=== PATIENT | female | born 1950 | race Caucasian/White ===

== ENCOUNTER 2024-08-29 11:39 | Outpatient (RCR) | payer MEDICARE, MEDICAID, SELFPAY ==
--- NOTE | 2024-08-29 13:33 | CTCFLWUP_ITS ---
Michael Avilez [facility] [address] [place], [place] [address] FOLLOW-UP NOTE Date: 08/29/2024 MR#: [id number] Name: JAH CASTLE : 1950 Dx: C34.12 Malignant neoplasm of upper lobe, left bronchus or lung Identification. Patient with diagnosis of SCCA R lung Just had completed PET scan. Unfortunately in addition to the 42 mm hypermetabolic pulmonary mass ri ght upper lobe there is a 12 mm right hilar hypermetabolic lymphadenopathy and 6 mm high right para-a ortic hypermetabolic lymph node. Patient stage appears to be minimum stage IIa T2aN1 , not a candidate for radiation surgery. Not sure if the hypermetabolic lymph node right para-aortic is at 6 mm is truly involved or not, but this would make it stage IV with mets. Patient was understandably upset about the PET findings but is willing to receive any therapy that mi t be helpful to her although is understandably concerned about chemotherapy. Told her about the PD-L1 that has been ordered and foundation 1 that I ordered today to help the [facility] oncologist various options that may be possible. Patient who lives in [place] was interested in seeing a local medical oncologist. I will introduce he r to Dr. Axel Mayen. The PD-L1 results and foundation 1 results hopefully will be available to Dr.Ku harris along with the records when patient sees him. Cc: Axel Mayen MD Electronically signed by: Luke Galeano M.D. 08/29/2024 1:30 PM
== END 2024-09-14 23:59 | disposition home or self-care (01) ==
LOC: SCTC 11:39
PROVIDERS: PCP Physician Assistant; Referring Provider Physician Assistant; Visit Provider Radiology Therapeutic Radiology
DX: C34.11 Malignant neoplasm of upper lobe, right bronchus or lung (principal)
CPT/HCPCS: 99213; G0463

== ENCOUNTER → 2024-09-23 | Outpatient (CLI) | payer MEDICARE, MEDICAID, SELFPAY ==
[2024-09-20 11:20] VITALS: BMI 30.4
[2024-09-23 13:41] LABS: Basophils # (Auto) 0.1 Thou/mm3 (0.0-0.2); Basophils % (Auto) 1 % (0-2.5); Eosinophils # (Auto) 0.2 Thou/mm3 (0.0-0.5); Eosinophils % (Auto) 3 % (0-10); Hematocrit 41.8 % (36.0-46.0); Hemoglobin 13.7 g/dL (12.0-16.0); Immature Granulocytes % (Auto) 0 % (0-0); Immature Granulocytes Auto 0.01 Thou/mm3 (0.00-0.00); Lymphocytes # (Auto) 2.2 Thou/mm3 (1.0-4.8); Lymphocytes % (Auto) 29 % (10-50); Mean Corpuscular HGB Conc 32.8 g/dl (31.0-37.0); Mean Corpuscular Hemoglobin 31.8 pg (25.0-35.0); Mean Corpuscular Volume 97 fL (80-100); Monocytes # (Auto) 0.4 Thou/mm3 (0.0-0.8); Monocytes % (Auto) 5 % (0-12); Neutrophils # (Auto) 4.7 Thou/mm3 (1.8-7.7); Neutrophils % (Auto) 62 % (37-80); Nucleated Red Blood Cell % 0 /100 WBC (0); Platelet Count 231 Thou/mm3 (140-440); RDW Standard Deviation 47.8 fL (36.4-46.3); Red Blood Count 4.31 Miln/mm3 (4.00-5.20); White Blood Count 7.6 Thou/mm3 (3.6-11.0)
[2024-09-23 13:55] LABS: Partial Thromboplastin Time 27.8 Seconds (22.0-36.0); Prothrombin Time 11.1 Seconds (9.0-12.2)
[2024-09-23 13:58] LABS: Blood Urea Nitrogen 17 mg/dL (9-23); Estimated Creatinine Clearance 50.6 mL/min (>60); eGFR 59 See Note
--- NOTE | 2024-09-24 08:30 | PC.NURSE ---
contact patient for confirmation of arriving to schedule appointment. per patient she will like to cancel procedure. call transferred to scheduling for cancellation.
== END | disposition home or self-care (01) ==
LOC: SLAB 09-26 08:41
PROVIDERS: Radiology Diagnostic Radiology; PCP Physician Assistant; Referring Provider Internal Medicine Hematology & Oncology; Visit Provider Internal Medicine Hematology & Oncology
DX: C34.11 Malignant neoplasm of upper lobe, right bronchus or lung (principal)
CPT/HCPCS: 36415; 82565; 84520; 85025; 85610; 85730

== ENCOUNTER 2024-12-30 13:03 | Emergency (ER) | payer MEDICARE, MEDICAID, SELFPAY ==
[2024-12-30 13:04] VITALS: BMI 27.4
[2024-12-30 13:30] VITALS: BP 123/76; PULSE 126; RESP 20; TEMP 36.8; O2SAT 96
--- NOTE | 2024-12-30 13:39 | EKG_ITS ---
[facility] Test Date: 2024-12-30 Pat Name: JAH CASTLE Department: Room: - Gender: Female [employer]: : 1950 Requested By: Randy Key Order Number: [id number] Reading MD: Randy Key Measurements Intervals Maynard Rate: 119 P: 52 SD: 155 QRS: -29 QRSD: 74 T: 45 QT: 298 QTc: 420 Interpretive Statements SINUS TACHYCARDIA LOW QRS VOLTAGE IN PRECORDIAL LEADS [QRS DEFLECTION < 1.0 mV IN CHEST LEADS] ANTERIOR MYOCARDIAL INFARCTION , PROBABLY OLD [40+ ms Q WAVE AND/OR ST/T ABNORMALITY IN V3/V4] INFERIOR MYOCARDIAL INFARCTION , PROBABLY OLD [40+ ms Q WAVE AND/OR ST/T ABNORMALITY IN II/aVF] Compared to ECG 07/24/2024 12:32:39 Sinus rhythm no longer present Myocardial infarct finding still present /store/S0/[id number]/ecg/[id number].pdf
--- NOTE | 2024-12-30 13:39 | PD.EDRME ---
Rapid Medical Screening Exam RME Arrival date/time: 12/30/24 13:03 74-year-old female with a history of stage III lung cancer presents to the emergency room with a chief complaint of weakness, fatigue, bilateral lower extremity pain and cramping x 3 days I have greeted and performed a focused initial assessment of this patient. A comprehensive ED assessment and evaluation of the patient, analysis of all test results, and completion of the medical decision making process will be conducted by additional ED providers. Chief Complaint: Abdominal Pain Time Seen by Provider: 12/30/24 13:09 Vital signs: Vital Signs Temperature 98.3 F 12/30/24 13:30 Pulse Rate 126 H 12/30/24 13:30 Respiratory Rate 20 12/30/24 13:30 Blood Pressure 123/76 12/30/24 13:30 Pulse Oximetry (%) 96 12/30/24 13:30 Oxygen Delivery Method Room Air 12/30/24 13:30 Vital signs reviewed by provider: Yes
[2024-12-30 14:18] LABS: Basophils % (Auto) 0 % (0-2.5); Eosinophils % (Auto) 0 % (0-10); Hematocrit 25.7 % (36.0-46.0); Immature Granulocytes % (Auto) 0 % (0-0); Immature Granulocytes Auto 0.01 Thou/mm3 (0.00-0.00); Lymphocytes # (Auto) 1.1 Thou/mm3 (1.0-4.8); Lymphocytes % (Auto) 27 % (10-50); Mean Corpuscular HGB Conc 33.5 g/dl (31.0-37.0); Mean Corpuscular Hemoglobin 32.7 pg (25.0-35.0); Mean Corpuscular Volume 98 fL (80-100); Monocytes # (Auto) 0.4 Thou/mm3 (0.0-0.8); Monocytes % (Auto) 9 % (0-12); Neutrophils # (Auto) 2.5 Thou/mm3 (1.8-7.7); Neutrophils % (Auto) 63 % (37-80); Nucleated Red Blood Cell % 0 /100 WBC (0); Platelet Count 114 Thou/mm3 (140-440); RDW Standard Deviation 68.7 fL (36.4-46.3); Red Blood Count 2.63 Miln/mm3 (4.00-5.20)
[2024-12-30 14:30] LABS: Hemoglobin 8.6 g/dL (12.0-16.0)
[2024-12-30 14:33] LABS: Partial Thromboplastin Time 32.5 Seconds (22.0-36.0); Prothrombin Time 11.3 Seconds (9.0-12.2)
[2024-12-30 14:37] LABS: B-Type Natriuretic Peptide 39 pg/mL (0-100)
[2024-12-30 14:44] LABS: Alanine Aminotransferase 55 U/L (10-49); Albumin, Serum 4.1 gm/dL (3.4-4.8); Albumin/Globulin Ratio 1.1 (1.2-2.2); Alkaline Phosphatase 91 U/L (46-116); Anion Gap 14 (7-16); Aspartate Amino Transferase 53 U/L (0-34); BUN/Creatinine Ratio 28 Ratio (12-20); Bilirubin,Total 0.5 mg/dL (0.3-1.2); Blood Urea Nitrogen 25 mg/dL (9-23); Calcium 9.4 mg/dL (8.3-10.6); Calcium (Corrected) 9.4 mg/dL (8.5-10.1); Chloride 110 mMol/L (98-107); Creatinine (Component) 0.9 mg/dL (0.6-1.3); Estimated Creatinine Clearance 57.5 mL/min (>60); Globulin 3.9 gm/dL (2.3-3.5); Glucose 103 mg/dL (74-106); Lipase 139 U/L (12-53); Magnesium 1.9 mg/dL (1.6-2.6); Osmolality,Calculated 278 (275-295); Potassium 4.2 mMol/L (3.4-5.1); Sodium 137 mMol/L (136-145); Troponin I < 0.020 ng/mL (0.0-0.045); eGFR > 60 See Note
[2024-12-30 15:00] LABS: Carbon Dioxide 13.3 mMol/L (20.0-31.0)
[2024-12-30 16:34] VITALS: BP 131/73; PULSE 117; RESP 24; TEMP 36.5; O2SAT 95
--- NOTE | 2024-12-30 16:40 | PD.EDABDPN ---
ED Abdominal Pain RME/HPI General Chief Complaint: Abdominal Pain Stated complaint: ABD/LEG PAIN FOR 3 DAYS Time seen by provider: 12/30/24 13:09 Arrival date/time: 12/30/24 13:03 74 year old female with past medical history of lung cancer Hypotension , HTN, present to emergency room with c/o of abd pain/leg pain for 3 days. Pt takes norco as need for pain and ativan as need for anxiety LOCATION: leg, abd SEVERITY: Symptoms are described as being severe with limitations on activities of daily living QUALITY: Symptoms are described as being dull or achy CONTEXT: none DURATION/TIMING: The symptoms started approximately 3 days ASSOCIATED SYMPTOMS:Weakness, lower leg pain, cramping, fatigue dry heaving MODIFYING FACTORS: The patient is unable to identify any alleviating or aggravating symptoms. PERTINENT ROS: no fevers, no headache, no neck or chest pain, , no focal neurological deficits no chest pain, shortness of breath, no dizziness/loc/syncope no recent travel/surgery REVIEW OF SYSTEMS: See History of Present Illness - with the exception of those mentioned in the history of present illness, all other systems reviewed and reported as negative GENERAL: In general the patient is awake, interactive, in an emergency department gurney. HEAD/EYES/EARS/NOSE/THROAT: normo-cephalic, atraumatic, mucus membranes are moist, anicteric, palpebral conjunctiva is pink, trachea is midline. CARDIOVASCULAR: regular rate and regular rhythm, no murmurs, heart sounds are not distant, strong pulses in all four extremities that are equal and symmetric bilateral upper and lower extremities, normal capillary refill. CHEST/PULMONARY: normal chest rise and fall, good air movement, clear to auscultation bilaterally, normal inspiratory to expiratory ratios without evidence of respiratory distress. NECK: No midline/Paraspinal tenderness, no step off ROM/Strenght intact No Kernig and bruzinski sign. No trauma ABDOMEN: soft, not tender, no masses appreciated BACK: normal range of motion without pain. NEUROLOGICAL: cranio-facial features are symmetric, moves all four extremities equally without obvious limitations or weakness. EXTREMITY: + bilateral calf tenderness, no pitting edema no tenderness to palpation over the long bones or large joints of the bilateral upper extremities, no joint swelling, no joint erythema, no signs of trauma, no unilateral leg swelling and no peripheral edema. SKIN: warm, dry, well-perfused, no jaundice, no rash, no telangiectasias or petechia. PSYCH: calm, cooperative, no evidence of psychosis or agitation RME / HPI RME / HPI narrative: 12/30/24 13:03 74-year-old female with a history of stage III lung cancer presents to the emergency room with a chief complaint of weakness, fatigue, bilateral lower extremity pain and cramping x 3 days I have greeted and performed a focused initial assessment of this patient. A comprehensive ED assessment and evaluation of the patient, analysis of all test results, and completion of the medical decision making process will be conducted by additional ED providers. Related Data Home Medications ?Medication ?Instructions ?Recorded ?Confirmed gabapentin 300 mg capsule 600 mg PO TID 04/17/23 07/24/24 hydrocodone 10 mg-acetaminophen 0.5 tab PO QID 04/17/23 07/24/24 325 mg tablet lorazepam 1 mg tablet (Ativan) 1 mg PO BID 07/24/24 07/24/24 losartan 25 mg tablet 25 mg PO QDAY 07/24/24 07/24/24 Allergies Allergy/AdvReac Type Severity Reaction Status Date / Time cephalexin Allergy Severe SWELLING Verified 12/30/24 13:06 pregabalin (From Lyrica) Allergy Severe Hives Verified 12/30/24 13:06 tetracycline Allergy Severe HIVES Verified 12/30/24 13:06 Course Quality Measures none Orders Category Date Time Status EKG (ED ONLY) *Do not use* NOW Care 12/30/24 13:[address] chest abdomen pelvis wo Stat Exams 12/30/24 16:54 Ordered EKG (ED Only) Stat Exams 12/30/24 13:39 Draft US venous doppler LE BI Stat Exams 12/30/24 16:54 Completed B-Type Natriuretic Peptide Stat Lab 12/30/24 13:58 Completed CBC Stat Lab 12/30/24 13:58 Completed CMP [Comprehensive Metabolic Panel] Stat Lab 12/30/24 13:58 Completed Lipase Stat Lab 12/30/24 13:58 Completed Magnesium Stat Lab 12/30/24 13:58 Completed Partial Thromboplastin Time Stat Lab 12/30/24 13:58 Completed Prothrombin Time with INR Stat Lab 12/30/24 13:58 Completed Troponin I Stat Lab 12/30/24 13:58 Completed UA [Urinalysis] Stat Lab 12/30/24 13:39 Ordered Urine Culture Stat Lab 12/30/24 13:39 Ordered ALPRazoLAM [Xanax] Med 12/30/24 16:53 Discontinued 1 mg PO X1 ONE ALPRazoLAM [Xanax] Med 12/30/24 19:08 Discontinued 1 mg PO X1 ONE Reevaluation(s) Reevaluation #1: pt would like to leave ama. pt report did not want to wait for CT scan. daughter will take patient home and follow up with PCP or return if symptoms worsen Despite our efforts, has decided to leave against medical advice (AMA) he/she has normal mental status and full decisional capacity. The patient understands his/her condition(stable ) and the risk of leaving AMA, including BUT NOT LIMITED TO permanent disability, , etc, and has had an opportunity to ask questions about his/her medical condition. The patient has been informed that he/she may return for care at anytime and has been referred to his/her PMD/PCP for follow up CARLIE. Vital Signs Vital signs: Vital Signs Temperature 98.3 F 12/30/24 13:30 Pulse Rate 126 H 12/30/24 13:30 Respiratory Rate 20 12/30/24 13:30 Blood Pressure 123/76 12/30/24 13:30 Pulse Oximetry (%) 96 12/30/24 13:30 Oxygen Delivery Method Room Air 12/30/24 13:30 Procedures -ED EKG Interpretation #1: Date of EK12/30/24 Rate: 119 Interpretation: Reviewed by me EKG Impression: Sinus tachycardia Abdominal Pain MDM Patient data External records reviewed:: [facility] previous records Clinical information provided by:: patient and family Social determinants that could affect healthcare access:: none Patient has the following chronic illnesses:: as stated in chart How is presenting disease/condition affected by chronic disease/condition?: exacerbated by Evaluation data The following diagnostics were reviewed and interpreted by me:: lab results, radiology exam(s) and EKG tracing(s) Lab and/or radiology exams considered but not ordered:: CT, left AMA Interpretation Summary: US: no dvt cbc/cmp wnl exception for CO Medications / Prescriptions Medications or Prescriptions considered but not ordered:: n/a Medication administrations:: Medication Administration History Discontinued Medications Alprazolam (Alprazolam 0.25 Mg Tablet) 1 mg PO X1 ONE Stop: 12/30/24 16:54 Last Admin: 12/30/24 16:57 Dose: 1 mg Documented By: BRIDGET Alprazolam (Alprazolam 0.25 Mg Tablet) 1 mg PO X1 ONE Stop: 12/30/24 19:09 as stated above Consultations Consultation(s) initiated? (list below): No Diagnosis Differential diagnosis abdominal pain: abdominal pain, calculus of kidney, constipation, diverticulitis, gastroenteritis, pancreatitis, small bowel obstruction and other (DVT< anemia ) Most likely diagnosis given after review of the tests above:: abd pain, leg pain Admission Indicated Admission indicated?: not indicated Admission Request Was there a request for admission?: No Disposition Plan Disposition Plan: Discharge Discharge Attestation Discharge Attestation: The patient and all family members were given an opportunity to ask questions and understood the discharge instructions. Discharge instructions specifically effects, indications for sooner follow up or return to the emergency department, and the expected course of current diagnosis. Patient condition: Stable Discharge Plan Plan Patient Disposition: Left Against Medical Advice Prescriptions/Referrals Prescriptions/Med Rec: No Action losartan 25 mg Tablet 25 mg PO QDAY lorazepam [Ativan] 1 mg Tablet 1 mg PO BID hydrocodone-acetaminophen 10-325 mg tablet 0.5 tab PO QID gabapentin 300 mg capsule 600 mg PO TID Patient Comments: TAKE 2 CAPSULES BY MOUTH 3 TIMES A DAY Referrals: Danielle Ayers PA-C [Primary Care Provider] - In 1 week Problem List Clinical Impression: Abdominal pain, Anemia, Acute leg pain Patient/Caregiver Discharge Instructions Education Materials: ED Anemia Type Not Specified, ED Myalgias Print Language: Hungarian
--- NOTE | 2024-12-30 16:54 | XR_ITS ---
Examination: Venous duplex lower extremity sonogram, bilateral. Date and time of exam: December 30, 2024 1742 hrs. Indications: Bilateral leg pain beginning 3 days ago, undergoing chemotherapy for lung cancer Technique: Multiple sonographic images of the deep venous system have been obtained. B-mode/2-D grayscale imaging of vascular structures and Doppler spectral analysis (waveforms) and color performed Both legs are examined. Findings: Deep venous systems do not demonstrate abnormal echogenicity. All visualized deep veins exhibit compressibility. All visualized deep veins exhibit augmentation. Impression: Negative for deep vein thrombosis
[2024-12-30] MEDS: ALPRazoLAM 0.25 MG TABLET 1 MG PO ×2 (16:57→19:23)
[2024-12-30 18:02] VITALS: BP 135/70; PULSE 97; RESP 19; TEMP 36.6; O2SAT 97
--- NOTE | 2024-12-30 19:20 | PC.NURSE ---
Received report from Fredis CARREON. Pt doesn't want to wait for ct scan. Yazan PASSENGER FLAGMAN in room talking to pt and dtr with regards to wait for ct scan but pt insiting to go AMA. Enc pt and dtr to stay but refused. Pt enc to return if condition is getting worse. Pt and dtr understood and verbalized comprehension to risk of .
== END 2024-12-31 06:18 | disposition left against medical advice (07) ==
PROVIDERS: Nurse Practitioner Family; Emergency Provider Emergency Medicine; PCP Physician Assistant
DX: D64.9 Anemia, unspecified (principal); R10.9 Unspecified abdominal pain; M79.605 Pain in left leg; M79.604 Pain in right leg; R00.0 Tachycardia, unspecified; I10 Essential (primary) hypertension; Z53.29 Procedure and treatment not carried out because of patient's decision for other reasons
CPT/HCPCS: 36415; 80053; 81001; 83690; 83735; 83880; 84484; 85025; 85610; 85730; 87086; 93005; 93970; 99284; A9270